=== PATIENT | male | born 1995 | race Caucasian/White ===

== ENCOUNTER → 2020-06-14 | Outpatient (CLI) | payer OTHER ==
--- NOTE | 2020-06-14 11:09 | Diagnostic Imaging Report ---
MRI SPINE LUMBAR WO HISTORY: Lumbar strain COMPARISON: None. TECHNIQUE: Sagittal T1, sagittal T2, sagittal STIR, axial T2, coronal T2, and axial proton density weighted images of the lumbar spine were obtained without contrast. DISCUSSION: Number of non-rib bearing lumbar vertebral bodies: 5. 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 Alignment: Normal lordosis. No scoliosis. Vertebrae: No fractures, infection or neoplasm. Conus medullaris: Normal, ends at L1. Cauda equina: No masses or arachnoiditis. Posterior paraspinal muscles: Well preserved. No signal abnormalities. Soft tissues: Small round T2 hyperintense lesion in the lower left kidney is likely a cyst. Mild L4-L5 disc degeneration is associated with a posterior annular fissure. T12-L1: Patent canal and foramina. L1-L2: Patent canal and foramina. L2-L3: Patent canal and foramina. L3-L4: Patent canal and foramina. L4-L5: Mild canal stenosis due to 5 mm left central disc protrusion, which slightly effaces the left lateral recess and likely abuts the descending left L5 nerve root (subtly displaced posterolaterally). Mild bilateral foraminal stenoses due to disc bulge and facet arthrosis. L5-S1: Patent canal and foramina. IMPRESSION: 1. Mild L4-L5 canal stenosis due to 5 mm left central disc protrusion, which likely abuts the descending left L5 nerve root. 2. Mild bilateral L4-L5 degenerative foraminal stenoses. Signed by: Dr. Geovanni Kaplan M.D. on 06/14/2020 11:06 AM
== END ==
LOC: MRI 08:58
PROVIDERS: ATTEND Family Medicine
DX: S39.012D Strain of muscle, fascia and tendon of lower back, subsequent encounter (principal)
CPT/HCPCS: 72148